=== PATIENT | male | born 1965 | race Hispanic/Latino ===

== ENCOUNTER 2023-04-01 18:26 | Emergency (ER) | payer OTHER, MEDICAID ==
[~2023-04-01 18:26] MED LIST: Iopamidol 370 76% 100 ML VIAL ONE
[2023-04-01] MEDS ORDERED: Ondansetron PF 4 MG/2 ML Vial ONE (19:30)
[2023-04-01] MEDS ORDERED: Ketorolac Tromethamine 30 MG/ML VIAL ONE (19:30)
[2023-04-01 19:48] LABS: #Basophils 0.1 thou/uL (0.0-0.2); #Eosinphils 0.1 thou/uL (0.0-0.7); #Lymphocytes 2.4 thou/uL (1.20-3.40); #Monocytes 0.4 thou/uL (0.11-0.59); %Basophils 1.6 % (0.0-1.0); %Eosinophils 2.2 % (0.0-10.0); %Monocytes 7.3 % (0.0-10.0); %Neutrophils 49.9 % (42.0-75.0); Hemoglobin 15.3 g/dL (14.0-18.0); Mean Corpuscular HGB CONC 35.2 g/dL (32.0-36.0); Mean Corpuscular Hemoglobin 31.1 pg (27.0-31.0); Mean Corpuscular Volume 88.4 fl (78.0-98.0); Mean Platelet Volume 9.3 fL (7.4-10.4); Platelet Count 183 10x3/uL (130-400); RBC Distribution Width 12.8 % (11.5-14.5); Red Blood Cell (RBC) Count 4.91 mill/uL (4.70-6.10); White Blood Cell (WBC) Count 6.1 10x3/uL (4.8-10.8)
[2023-04-01 19:49] LABS: Bilirubin Negative (Negative); Blood, Urine Negative (Negative); Clarity Clear (Clear); Glucose, Urine (Dipstick) Normal (Negative); Ketone, Urine Negative (Negative); Leukocyte Negative Leu/uL (Negative); Nitrite Negative (Negative); Protein, Urine (Dipstick) Negative (Neg-Trace); Specific Gravity, Urine 1.023 (1.002-1.036); Urobilinogen Normal mg/dL (Less than 2); pH, Urine 5.5 (5.0-9.0)
[2023-04-01 20:09] LABS: ALT (SGPT) 38 U/L (8-55); AST (SGOT) 31 U/L (5-34); Albumin 4.6 g/dL (3.5-5.0); Alkaline Phosphatase 50 U/L (40-110); Anion Gap 17 mmol/L (10-20); BUN (Urea Nitrogen) 9 mg/dL (8.4-25.7); Bilirubin, Total 0.4 mg/dL (0.2-1.2); Calc. Creatinine Clearance 0 mL/min (70-130); Calcium 9.8 mg/dL (7.8-10.44); Carbon Dioxide 25 mmol/L (22-29); Chloride 99 mmol/L (98-107); Estimated GFR 71; Globulin 3.9 g/dL (2.4-3.5); Glucose 139 mg/dL (70-105); Lipase 31 U/L (8-78); Potassium 3.4 mmol/L (3.5-5.1); Protein, Total 8.5 g/dL (6.0-8.3); Sodium 138 mmol/L (136-145)
== END 2023-04-01 22:41 | disposition home or self-care (01) ==
LOC: ERS 18:26
DX: R10.31 Right lower quadrant pain (principal); M54.50 Low back pain, unspecified; E11.9 Type 2 diabetes mellitus without complications; I10 Essential (primary) hypertension
CPT/HCPCS: 74177; 80053; 81003; 83690; 84484; 85025; 93005; 96374; 96375; J1885; J2405; Q9967

== ENCOUNTER 2023-10-20 09:49 | Emergency (ER) | payer OTHER, MEDICAID ==
[2023-10-20] MEDS ORDERED: predniSONE 20 MG TAB ONE (10:11)
[2023-10-20] MEDS ORDERED: Cyclobenzaprine 10 MG TAB ONE (10:12)
[2023-10-20] MEDS ORDERED: Ketorolac Tromethamine 30 MG/ML VIAL ONE (10:23)
[2023-10-20] MEDS ORDERED: Ketorolac Tromethamine 60 MG/2 ML VIAL IM SCH (10:30)
== END 2023-10-20 11:47 | disposition home or self-care (01) ==
LOC: ERS 09:49
DX: M54.16 Radiculopathy, lumbar region (principal); I10 Essential (primary) hypertension
CPT/HCPCS: 72100; 96372; J1885; J7512

== ENCOUNTER 2024-05-19 20:33 | Emergency (ER) | payer OTHER, MEDICAID ==
[2024-05-19] MEDS ORDERED: Dexamethasone 10 MG/ML VIAL ONE (21:50)
[2024-05-19] MEDS ORDERED: LORazepam 2 MG/ML SYR.(CARPUJECT) ONE (21:50)
[2024-05-19] MEDS ORDERED: Ketorolac Tromethamine 30 MG (1 mL) VIAL ONE (21:50)
[2024-05-19] MEDS ORDERED: fentaNYL 50 mcg/mL 1 mL Vial ONE (21:50)
== END 2024-05-19 22:45 | disposition home or self-care (01) ==
LOC: ERS 20:33
DX: M54.40 Lumbago with sciatica, unspecified side (principal); E11.9 Type 2 diabetes mellitus without complications; I10 Essential (primary) hypertension
CPT/HCPCS: 72100; 73502; 96374; 96375; 99283; J1100; J1885; J2060; J3010

== ENCOUNTER 2024-06-02 19:41 | Emergency (ER) | payer MEDICAID, OTHER ==
[2024-06-02] MEDS ORDERED: Ketorolac Tromethamine 30 MG (1 mL) VIAL ONE (20:12)
[2024-06-02] MEDS ORDERED: Diazepam 5 MG TAB ONE (20:14)
== END 2024-06-02 20:45 | disposition home or self-care (01) ==
LOC: ERS 19:41
DX: M54.41 Lumbago with sciatica, right side (principal); E11.9 Type 2 diabetes mellitus without complications; I10 Essential (primary) hypertension
CPT/HCPCS: 96372; 99283; J1885

== ENCOUNTER 2024-10-24 20:23 | Emergency (ER) | payer OTHER ==
[2024-10-29 14:46] LABS: Syphilis Antibody Nonreactive (Nonreactive); Syphilis Antibody Index 0.12 S/CO (<1.00 Non-Reactive)
== END 2024-10-25 17:18 | disposition home or self-care (01) ==
LOC: ERS 20:23
DX: R21 Rash and other nonspecific skin eruption (principal); E11.9 Type 2 diabetes mellitus without complications
CPT/HCPCS: 86780; 99282